=== PATIENT | female | born 1980 | race African-American/Black ===

== ENCOUNTER 2024-07-07 16:11 | Emergency (ER) | payer SELFPAY ==
[~2024-07-07] VITALS: Ht 172.7 cm; Wt 82.0 kg
[2024-07-07 16:17] VITALS: TEMP 36.8; O2SAT 100
[2024-07-07] MEDS ORDERED: IBUP-2029 MT (18:46)
[2024-07-07 19:07] VITALS: BP 127/84; PULSE 85; RESP 16
[2024-07-07] MEDS: IBUPROFEN 800MG TABLET PO ONE (19:07)
[2024-07-07] MEDS: CYCLOBENZAPRINE 10MG TABLET PO ONE (19:07)
== END 2024-07-07 20:13 | disposition home or self-care (01) ==
LOC: ER 16:11
DX: M25.511 Pain in right shoulder (principal); R07.89 Other chest pain; M54.2 Cervicalgia; Z79.899 Other long term (current) drug therapy
CPT/HCPCS: 71045; 73030; 99284